=== PATIENT | male | born 1950 | race Caucasian/White ===

== ENCOUNTER 2020-09-14 10:14 | Inpatient (IN) | payer MEDICARE ==
[~2020-09-14] VITALS: Ht 185.4 cm; Wt 72.6 kg
[~2020-09-14 10:14] MED LIST changes: -BENADRYL ALLERG25 MG PO; -LISINOPRIL5 MG PO; -LOPRESSOR 25 MG25 MG PO; -ROPINIROLE HCL2 MG PO; -SYNTHROID50 MCG PO; -UNASYN 3 GM VIAL3 GM INJ
[2020-09-15] MEDS ORDERED: SYNTHROID50 MCG PO (02:18)
[2020-09-15] MEDS ORDERED: ROPINIROLE HCL2 MG PO (07:19)
[2020-09-15] MEDS ORDERED: BENADRYL ALLERG25 MG PO (18:04)
[2020-09-16 12:46] LABS: BUN/CREATININE RATIO 25 (0-10)
[2020-09-18 03:49] LABS: BUN/CREATININE RATIO 27 (0-10)
--- NOTE | 2020-09-18 14:56 | NUR ---
report given to admitting nurse [facility]
[2020-09-18] MEDS ORDERED: UNASYN 3 GM VIAL3 GM INJ (17:02)
[2020-09-18] MEDS ORDERED: LOPRESSOR 25 MG25 MG PO (17:02)
[2020-09-18] MEDS ORDERED: LISINOPRIL5 MG PO (17:02)
--- NOTE | 2020-09-18 18:05 | NUR ---
INFORMED [facility] PATIENT GOING HOME TODAY.
--- NOTE | 2020-09-18 18:13 | NUR ---
PATIENT REFUSED WOUND CARE TODAY
== END 2020-09-18 18:30 | disposition home or self-care (01) | DRG 638 ==
LOC: M/S 14:30
PROVIDERS: ADMIT Internal Medicine Infectious Disease
PROC: 05HM33Z Insertion of Infusion Device into Right Internal Jugular Vein, Percutaneous Approach (ICD-10-PCS; principal; 2020-09-14)
PROC: B543ZZA Ultrasonography of Right Jugular Veins, Guidance (ICD-10-PCS; 2020-09-14)
DX: E11.621 Type 2 diabetes mellitus with foot ulcer (principal); L97.429 Non-pressure chronic ulcer of left heel and midfoot with unspecified severity; L03.116 Cellulitis of left lower limb; M86.172 Other acute osteomyelitis, left ankle and foot; I13.0 Hypertensive heart and chronic kidney disease with heart failure and stage 1 through stage 4 chronic kidney disease, or unspecified chronic kidney disease; I50.22 Chronic systolic (congestive) heart failure; E11.52 Type 2 diabetes mellitus with diabetic peripheral angiopathy with gangrene; I96 Gangrene, not elsewhere classified; Z20.822 Contact with and (suspected) exposure to COVID-19; Z80.9 Family history of malignant neoplasm, unspecified; E11.22 Type 2 diabetes mellitus with diabetic chronic kidney disease; I25.10 Atherosclerotic heart disease of native coronary artery without angina pectoris; B95.61 Methicillin susceptible Staphylococcus aureus infection as the cause of diseases classified elsewhere; B95.2 Enterococcus as the cause of diseases classified elsewhere; N18.30 Chronic kidney disease, stage 3 unspecified; L97.529 Non-pressure chronic ulcer of other part of left foot with unspecified severity; Z95.810 Presence of automatic (implantable) cardiac defibrillator; Z89.421 Acquired absence of other right toe(s); Z79.899 Other long term (current) drug therapy; Z79.01 Long term (current) use of anticoagulants; Z79.82 Long term (current) use of aspirin
CPT/HCPCS: 36415; 71045; 73701; 78315; 80048; 80053; 82962; 83036; 85027; 85652; 86140; 93926; A9503; J0295; J7030; Q9967; U0002

== ENCOUNTER → 2020-09-14 | Outpatient (CLI) | payer MEDICARE ==
[~2020-09-14] MED LIST: ACETAMINOPHEN325 MG PO; ALDACTONE25 MG PO; ASPIRIN81 MG PO; AUGMENTIN 875-1 EACH PO; BENADRYL 50MG C50 MG PO; BENADRYL ALLERG25 MG PO; CRESTOR40 MG PO; EXCEDRIN MIGRA1 EACH PO; FINASTERIDE5 MG PO; FLOMAX 0.4 MG0.4 MG PO; GLUCOPHAGE1000 MG PO; HUMALOG 10100 UNITS/ SC; ISORDIL TAB 2020 MG PO; KEFLEX500 MG PO; LANTUS INS100 UTS/M1 SQ; LASIX40 MG PO; LISINOPRIL20 MG PO; LISINOPRIL5 MG PO; LOPRESSOR 25 MG25 MG PO; LOPRESSOR 50 MG50 MG PO; METOPROLOL TART50 MG PO; NEURONTIN800 MG PO; NORCO 5-325 TA1 EACH PO; PLAVIX 75 MG TA75 MG PO; PRAVASTATIN SOD20 MG PO; PRINIVIL20 MG PO; ROPINIROLE HCL2 MG PO; SYNTHROID50 MCG PO; TYLENOL WITH C1 EACH PO; UNASYN 3 GM VIAL3 GM INJ; VITAMIN C500 M4 PO
[2020-09-14 13:21] LABS: HEMOGLOBIN 11.6 gm/dl (14.0-17.5); RED BLOOD COUNT 3.94 M/UL (4.20-5.50); WHITE BLOOD COUNT 9.8 K/UL (4.5-11.0)
[2020-09-14 14:02] LABS: BUN/CREATININE RATIO 26 (0-10)
== END ==
LOC: OPSV 11:30
PROVIDERS: Nurse Practitioner Family
DX: Z53.8 Procedure and treatment not carried out for other reasons (principal)
CPT/HCPCS: 71045; 80053; 85027; 85652; 86140

== ENCOUNTER 2020-10-17 12:03 | Emergency (ER) | payer MEDICARE, OTHER ==
[~2020-10-17 12:03] MED LIST changes: +BENADRYL ALLERG25 MG PO; +LISINOPRIL5 MG PO; +LOPRESSOR 25 MG25 MG PO; +ROPINIROLE HCL2 MG PO; +SYNTHROID50 MCG PO; +UNASYN 3 GM VIAL3 GM INJ
== END 2020-10-17 12:44 | disposition home or self-care (01) ==
LOC: ER1 12:03
DX: Z45.2 Encounter for adjustment and management of vascular access device (principal); E11.9 Type 2 diabetes mellitus without complications; I10 Essential (primary) hypertension; F17.220 Nicotine dependence, chewing tobacco, uncomplicated
CPT/HCPCS: 99283

== ENCOUNTER → 2020-10-26 | Outpatient (CLI) | payer MEDICARE, OTHER | LOC: KOH-I 14:16 | DX: T81.89XA Other complications of procedures, not elsewhere classified, initial encounter (principal); Z53.9 Procedure and treatment not carried out, unspecified reason ==

== ENCOUNTER → 2020-11-01 | Outpatient (CLI) | payer MEDICARE | LOC: US 10:00 | DX: S81.802A Unspecified open wound, left lower leg, initial encounter (principal); X58.XXXA Exposure to other specified factors, initial encounter | CPT/HCPCS: 93926 ==

== ENCOUNTER → 2020-11-02 | Outpatient (CLI) | payer MEDICARE | LOC: OPSV 11:00 | PROC: 02HV33Z Insertion of Infusion Device into Superior Vena Cava, Percutaneous Approach (ICD-10-PCS; principal; 2020-11-02) | DX: M86.9 Osteomyelitis, unspecified (principal) ==

== ENCOUNTER → 2020-11-03 | Outpatient (CLI) | payer MEDICARE ==
[~2020-11-03] VITALS: Ht 185.4 cm; Wt 72.6 kg
[2020-11-03 08:42] LABS: HEMOGLOBIN 10.9 gm/dl (14.0-17.5); RED BLOOD COUNT 3.63 M/UL (4.20-5.50)
[2020-11-03 08:58] LABS: BUN/CREATININE RATIO 39 (0-10)
== END ==
LOC: OPSV 07:36
PROVIDERS: Podiatrist Foot & Ankle Surgery
DX: M86.9 Osteomyelitis, unspecified (principal)
CPT/HCPCS: 80053; 85027; 85652; 86140; 96365; 96366; J3370; J7070

== ENCOUNTER → 2020-12-06 | Outpatient (CLI) | payer MEDICARE | LOC: WCC 09:31 | PROC: 0JBR0ZZ Excision of Left Foot Subcutaneous Tissue and Fascia, Open Approach (ICD-10-PCS; principal; 2020-12-06) | DX: E11.621 Type 2 diabetes mellitus with foot ulcer (principal); L97.522 Non-pressure chronic ulcer of other part of left foot with fat layer exposed; E11.52 Type 2 diabetes mellitus with diabetic peripheral angiopathy with gangrene; I96 Gangrene, not elsewhere classified; E11.65 Type 2 diabetes mellitus with hyperglycemia; E11.69 Type 2 diabetes mellitus with other specified complication; M86.8X9 Other osteomyelitis, unspecified sites; E11.40 Type 2 diabetes mellitus with diabetic neuropathy, unspecified; I25.2 Old myocardial infarction; I11.0 Hypertensive heart disease with heart failure; I50.9 Heart failure, unspecified; I25.10 Atherosclerotic heart disease of native coronary artery without angina pectoris; Z79.4 Long term (current) use of insulin; Z79.2 Long term (current) use of antibiotics; Z79.899 Other long term (current) drug therapy; Z88.8 Allergy status to other drugs, medicaments and biological substances | CPT/HCPCS: G0463 ==

== ENCOUNTER → 2020-12-13 | Outpatient (CLI) | payer MEDICARE | LOC: WCC 10:21 | DX: E11.621 Type 2 diabetes mellitus with foot ulcer (principal); L97.509 Non-pressure chronic ulcer of other part of unspecified foot with unspecified severity; E11.40 Type 2 diabetes mellitus with diabetic neuropathy, unspecified; E11.65 Type 2 diabetes mellitus with hyperglycemia; I11.0 Hypertensive heart disease with heart failure; I50.9 Heart failure, unspecified; M86.9 Osteomyelitis, unspecified; Z79.4 Long term (current) use of insulin | CPT/HCPCS: 97597 ==

== ENCOUNTER → 2020-12-21 | Outpatient (CLI) | payer MEDICARE | LOC: WCC 10:29 | PROC: 0JBR0ZZ Excision of Left Foot Subcutaneous Tissue and Fascia, Open Approach (ICD-10-PCS; principal; 2020-12-21) | DX: E11.621 Type 2 diabetes mellitus with foot ulcer (principal); L97.522 Non-pressure chronic ulcer of other part of left foot with fat layer exposed; E11.52 Type 2 diabetes mellitus with diabetic peripheral angiopathy with gangrene; I96 Gangrene, not elsewhere classified; E11.40 Type 2 diabetes mellitus with diabetic neuropathy, unspecified; E11.65 Type 2 diabetes mellitus with hyperglycemia; E11.69 Type 2 diabetes mellitus with other specified complication; M86.8X7 Other osteomyelitis, ankle and foot; I11.0 Hypertensive heart disease with heart failure; I50.9 Heart failure, unspecified; I25.10 Atherosclerotic heart disease of native coronary artery without angina pectoris; I25.2 Old myocardial infarction; Z79.4 Long term (current) use of insulin; Z79.2 Long term (current) use of antibiotics; Z79.899 Other long term (current) drug therapy; Z88.8 Allergy status to other drugs, medicaments and biological substances | CPT/HCPCS: 87070; 87205 ==

== ENCOUNTER 2021-06-04 14:08 | Emergency (ER) | payer OTHER, MEDICARE ==
[2021-06-04 14:45] LABS: HEMOGLOBIN 9.4 gm/dl (14.0-17.5); RED BLOOD COUNT 3.14 M/UL (4.20-5.50); WHITE BLOOD COUNT 9.4 K/UL (4.5-11.0)
[2021-06-04] MEDS ORDERED: HYDROCODON-ACE1 EAC4 PO (17:47)
== END 2021-06-04 17:56 | disposition home or self-care (01) ==
LOC: ER1 14:08
PROVIDERS: Student in an Organized Health Care Education/Training Program
DX: S01.112A Laceration without foreign body of left eyelid and periocular area, initial encounter (principal); E11.9 Type 2 diabetes mellitus without complications; I25.2 Old myocardial infarction; I51.9 Heart disease, unspecified; Z23 Encounter for immunization; V03.99XA Pedestrian with other conveyance injured in collision with car, pick-up truck or van, unspecified whether traffic or nontraffic accident, initial encounter; Y92.481 Parking lot as the place of occurrence of the external cause
CPT/HCPCS: 12011; 70450; 71275; 72125; 73560; 80053; 82550; 82553; 83874; 84484; 85025; 90471; 90715; 93005; 99285; Q9967

== ENCOUNTER 2021-06-12 13:45 | Inpatient (IN) | payer MEDICARE, OTHER ==
[~2021-06-12] VITALS: Ht 185.4 cm; Wt 83.5 kg
[~2021-06-12 13:45] MED LIST changes: +HYDROCODON-ACE1 EAC4 PO
[2021-06-12 15:03] LABS: HEMOGLOBIN 8.9 gm/dl (14.0-17.5); RED BLOOD COUNT 3.04 M/UL (4.20-5.50); WHITE BLOOD COUNT 7.8 K/UL (4.5-11.0)
[2021-06-12 15:09] LABS: BUN/CREATININE RATIO 26 (0-10)
[2021-06-12] MEDS ORDERED: ROPINIROLE HCL2 MG PO (17:05)
[2021-06-12] MEDS ORDERED: HYDROCODON-ACE1 EAC4 PO (17:06)
[2021-06-12] MEDS ORDERED: LEVEMIR FL100 UNIT/1 SQ (17:07)
[2021-06-13 04:41] LABS: HEMOGLOBIN 8.8 gm/dl (14.0-17.5); WHITE BLOOD COUNT 9.1 K/UL (4.5-11.0)
[2021-06-13 04:55] LABS: BUN/CREATININE RATIO 24 (0-10)
[2021-06-14 06:40] LABS: HEMOGLOBIN 8.6 gm/dl (14.0-17.5); RED BLOOD COUNT 2.95 M/UL (4.20-5.50)
[2021-06-14 06:45] LABS: WHITE BLOOD COUNT 6.3 K/UL (4.5-11.0)
[2021-06-14 07:07] LABS: BUN/CREATININE RATIO 25 (0-10)
[2021-06-15 03:05] LABS: HEMOGLOBIN 7.4 gm/dl (14.0-17.5); WHITE BLOOD COUNT 6.6 K/UL (4.5-11.0)
[2021-06-15 03:06] LABS: RED BLOOD COUNT 2.51 M/UL (4.20-5.50)
[2021-06-15 03:20] LABS: BUN/CREATININE RATIO 24 (0-10)
[2021-06-16 06:03] LABS: HEMOGLOBIN 7.8 gm/dl (14.0-17.5); RED BLOOD COUNT 2.67 M/UL (4.20-5.50); WHITE BLOOD COUNT 6.2 K/UL (4.5-11.0)
[2021-06-16 06:33] LABS: BUN/CREATININE RATIO 30 (0-10)
[2021-06-17 07:14] LABS: HEMOGLOBIN 8.3 gm/dl (14.0-17.5); RED BLOOD COUNT 2.8 M/UL (4.20-5.50)
[2021-06-17 07:25] LABS: WHITE BLOOD COUNT 8.1 K/UL (4.5-11.0)
[2021-06-17 07:28] LABS: BUN/CREATININE RATIO 32 (0-10)
[2021-06-18 05:08] LABS: HEMOGLOBIN 7.4 gm/dl (14.0-17.5); RED BLOOD COUNT 2.52 M/UL (4.20-5.50); WHITE BLOOD COUNT 6.6 K/UL (4.5-11.0)
[2021-06-18 05:27] LABS: BUN/CREATININE RATIO 36 (0-10)
[2021-06-18] MEDS ORDERED: SANTYL OINT 3030 GM TOP (15:00)
== END 2021-06-19 11:42 | disposition home health service (06) | DRG 300 ==
LOC: ER1 13:45 → CDU 16:11 → M/S 16:11
PROVIDERS: Emergency Medicine; Physician Assistant; Physician Assistant Medical; ADMIT Internal Medicine
DX: E11.52 Type 2 diabetes mellitus with diabetic peripheral angiopathy with gangrene (principal); I50.22 Chronic systolic (congestive) heart failure; E11.621 Type 2 diabetes mellitus with foot ulcer; Z20.822 Contact with and (suspected) exposure to COVID-19; K59.00 Constipation, unspecified; I10 Essential (primary) hypertension; E78.5 Hyperlipidemia, unspecified; L89.152 Pressure ulcer of sacral region, stage 2; G89.29 Other chronic pain; I11.0 Hypertensive heart disease with heart failure; E03.9 Hypothyroidism, unspecified; D63.8 Anemia in other chronic diseases classified elsewhere; I25.5 Ischemic cardiomyopathy; R33.9 Retention of urine, unspecified; E11.65 Type 2 diabetes mellitus with hyperglycemia; Z79.4 Long term (current) use of insulin; Z95.810 Presence of automatic (implantable) cardiac defibrillator; Z95.1 Presence of aortocoronary bypass graft; Z89.431 Acquired absence of right foot; Z88.8 Allergy status to other drugs, medicaments and biological substances; Z80.9 Family history of malignant neoplasm, unspecified
CPT/HCPCS: 36415; 73502; 73552; 73650; 80048; 80202; 82607; 82728; 82746; 82962; 83036; 83540; 83550; 83880; 85025; 85027; 85652; 86140; 87040; 96374; 99284; J0692; J0696; J1650; J3370; J7070; U0002

== ENCOUNTER → 2021-06-24 | Outpatient (CLI) | payer MEDICARE ==
[~2021-06-24] MED LIST changes: +LEVEMIR FL100 UNIT/1 SQ; +SANTYL OINT 3030 GM TOP
[2021-06-24 12:54] LABS: HEMOGLOBIN 8.9 gm/dl (14.0-17.5); RED BLOOD COUNT 3.03 M/UL (4.20-5.50); WHITE BLOOD COUNT 7.9 K/UL (4.5-11.0)
[2021-06-24 13:15] LABS: BUN/CREATININE RATIO 20 (0-10)
== END ==
LOC: LAB 12:25
PROVIDERS: Internal Medicine
DX: D64.9 Anemia, unspecified (principal)
CPT/HCPCS: 80048; 85027

== ENCOUNTER 2021-08-28 16:07 | Emergency (ER) | payer MEDICARE ==
[2021-08-28 17:47] LABS: HEMOGLOBIN 9.7 gm/dl (14.0-17.5); RED BLOOD COUNT 3.39 M/UL (4.20-5.50); WHITE BLOOD COUNT 7.1 K/UL (4.5-11.0)
[2021-08-28 18:07] LABS: BUN/CREATININE RATIO 30 (0-10)
== END 2021-08-28 20:41 | disposition left against medical advice (07) ==
LOC: ER1 16:07
PROVIDERS: Physician Assistant
DX: R60.0 Localized edema (principal); I50.9 Heart failure, unspecified; E11.9 Type 2 diabetes mellitus without complications; E78.5 Hyperlipidemia, unspecified; Z88.8 Allergy status to other drugs, medicaments and biological substances
CPT/HCPCS: 80053; 83880; 85025; 99283

== ENCOUNTER → 2021-09-06 | Outpatient (CLI) | payer MEDICARE | LOC: LBRF 11:05 | DX: E11.628 Type 2 diabetes mellitus with other skin complications (principal); S91.302A Unspecified open wound, left foot, initial encounter | CPT/HCPCS: 87070; 87077; 87205 ==

== ENCOUNTER 2021-12-10 14:49 | Inpatient (IN) | payer MEDICARE ==
[~2021-12-10] VITALS: Ht 177.8 cm; Wt 79.4 kg
[2021-12-10] MEDS ORDERED: SULFAMETHOXAZO1 EAC1 PO (20:22)
[2021-12-10] MEDS ORDERED: LISINOPRIL20 MG PO (20:24)
[2021-12-10 20:27] LABS: HEMOGLOBIN 8.2 gm/dl (14.0-17.5); RED BLOOD COUNT 2.94 M/UL (4.20-5.50); WHITE BLOOD COUNT 22.7 K/UL (4.5-11.0)
[2021-12-10] MEDS ORDERED: CLOPIDOGREL75 MG PO (20:27)
[2021-12-10] MEDS ORDERED: BENADRYL25 MG PO (20:28)
[2021-12-10] MEDS ORDERED: COLACE100 MG PO (20:28)
[2021-12-10] MEDS ORDERED: FERROUS SULFAT325 M2 PO (20:29)
[2021-12-10] MEDS ORDERED: ECOTRIN81 MG PO (20:29)
[2021-12-11 07:32] LABS: HEMOGLOBIN 7.2 gm/dl (14.0-17.5); WHITE BLOOD COUNT 18.1 K/UL (4.5-11.0)
[2021-12-11 07:37] LABS: RED BLOOD COUNT 2.64 M/UL (4.20-5.50)
[2021-12-13 03:30] LABS: RED BLOOD COUNT 2.41 M/UL (4.20-5.50); WHITE BLOOD COUNT 14.8 K/UL (4.5-11.0)
[2021-12-13 04:00] LABS: HEMOGLOBIN 6.8 gm/dl (14.0-17.5)
--- NOTE | 2021-12-14 15:22 | NUR ---
DRESSING CHANGE PER PROVIDERS ORDER'S, RT FOOT MARGIN'S IN TACT, GRAPH NOTED CLEANED WITH IODINE, AND NS COVER WITH NON STICK DRESSING AND WRAPPED WITH KERLIX. LT FOOT WOUND BED INTACT WITH VISIBLE BLOOD NOTED BLEEDING STOPPED ONCE RINSED WITH NORMAL SALINE. COVERED WITH NON ADHERENT GAUGE AND WRAPPED WITH KERLIX. PT TOLERATED WELL.
[2021-12-16 03:51] LABS: HEMOGLOBIN 7.7 gm/dl (14.0-17.5); RED BLOOD COUNT 2.69 M/UL (4.20-5.50)
--- NOTE | 2021-12-16 14:58 | NUR ---
PT DRESSING CHANGE COMPLETED PER PROVIDERS ORDERS RT HEEL HAS WELL APPROXIMATED EDGES, NO DRAINAGE NOTED. LT HEEL HAS GRAPH IN PLACE WITH SLOUGHY WOUND BED WHITE TO YELLOWISH IN COLOR, ODOR NOTED COMING FROM WOUND.
[2021-12-17 06:30] LABS: HEMOGLOBIN 7.9 gm/dl (14.0-17.5); RED BLOOD COUNT 2.74 M/UL (4.20-5.50); WHITE BLOOD COUNT 11.7 K/UL (4.5-11.0)
--- NOTE | 2021-12-17 18:27 | NUR ---
dsg changes as ordered to bilateral heels, pt tolerated well..
--- NOTE | 2021-12-17 19:00 | NUR ---
RN TURNED PT'S BED ALARM ON. HOWEVER, PT DEMANDED THAT RN TURN BED ALARM OFF. PT STATING THAT HE DOES NOT WANT ALARM ON AND THAT HE WILL NOT ATTEMPT TO GET OUT OF BED WITHOUT ASSISTANCE. PT REFUSING YELLOW GOWN AND YELLOW NONSKID SOCKS AT THIS TIME. EDUCATED PT ON THE IMPORTANCE OF BED ALARM USAGE. HOWEVER, PT IS STILL REFUSING BED ALARM. PT IS A&O X 3.
[2021-12-18 06:35] LABS: WHITE BLOOD COUNT 11.2 K/UL (4.5-11.0)
[2021-12-18 06:36] LABS: RED BLOOD COUNT 2.42 M/UL (4.20-5.50)
--- NOTE | 2021-12-18 08:30 | NUR ---
Mr Grimes asked for assistance to bedside commode to urinate. I asked if he could try the urinal with assistance due to his hgb being 7.0 and concern that with max assist and low blood he could be at risk for being dizzy and a higher risk for falls. he laid back in the bed with frustration and said "Nevermind I guess I will just piss on myself and you guys can change me." he has continued to be noncompliant with safety concerns and declining the bed alarm, yellow socks and gown. The [employer] Radha and i both told him that was not necessary we were there to help him. He did get up and he voided in the bedside commode, His wet pants were removed by the tech accidentally removing his right heel dressing. When he was cleaned up and helped back to bed, before leaving the room I told him I would be right back when I finished passing his neighbors meds that I had already started. My counseling case manager approached me asking if there had been any issues I told her not that I was aware and i gave her a brief explanantion about a few things that had been happening. The patient requested that I not be his nurse. Report given to Olive YUSUF . Dressing changes to bilateral feet done pt tolerated well. aware of all issues this morning. Care will be resumed by Olive YUSUF. I never told this patient that personal care of any kind was below my pay grade.
[2021-12-18 09:52] LABS: HEMOGLOBIN 7.8 gm/dl (14.0-17.5)
[2021-12-19 04:00] LABS: HEMOGLOBIN 7.7 gm/dl (14.0-17.5); WHITE BLOOD COUNT 11.6 K/UL (4.5-11.0)
[2021-12-19 04:08] LABS: RED BLOOD COUNT 2.68 M/UL (4.20-5.50)
--- NOTE | 2021-12-19 15:09 | NUR ---
AFTER PLACEMENT OF COUDE CATHETER PATIENT WANTED STAT LOCK TO BE PLACED ABOVE HIS WAIST BAND. PATIENT WAS EDUCATED TO WHY THIS IS AN IMPOSSIBLE PLACEMENT DUE TO INFECTION AND POSSIBLE BLADDER RUPTURE OUTCOMES OF SUCH A PLACEMNT. PATIENT ALSO WAS EDUCATED TO WHY BETTER FITTING PAJAMA PANTS WOULD BE HELPFUL AND SOME OF THE HOSPITAL PAJAMAS WOULD BE OBTAINED FOR HIM. HE WAS AMENABLE TO THIS SOLUTION AFTER EDUCATION. WILL CONTINUE TO MONITOR.
[2021-12-20 04:10] LABS: RED BLOOD COUNT 2.44 M/UL (4.20-5.50); WHITE BLOOD COUNT 9.5 K/UL (4.5-11.0)
[2021-12-20 10:18] LABS: HEMOGLOBIN 8.3 gm/dl (14.0-17.5)
[2021-12-21 02:51] LABS: HEMOGLOBIN 7.5 gm/dl (14.0-17.5); RED BLOOD COUNT 2.59 M/UL (4.20-5.50); WHITE BLOOD COUNT 8.8 K/UL (4.5-11.0)
[2021-12-22 06:15] LABS: HEMOGLOBIN 7.9 gm/dl (14.0-17.5); RED BLOOD COUNT 2.73 M/UL (4.20-5.50); WHITE BLOOD COUNT 8.6 K/UL (4.5-11.0)
[2021-12-23 06:14] LABS: HEMOGLOBIN 7.5 gm/dl (14.0-17.5); RED BLOOD COUNT 2.63 M/UL (4.20-5.50); WHITE BLOOD COUNT 8.5 K/UL (4.5-11.0)
[2021-12-24 06:04] LABS: HEMOGLOBIN 7.7 gm/dl (14.0-17.5); RED BLOOD COUNT 2.74 M/UL (4.20-5.50)
[2021-12-24 06:28] LABS: BUN/CREATININE RATIO 61 (0-10)
[2021-12-25 02:21] LABS: HEMOGLOBIN 8.6 gm/dl (14.0-17.5); RED BLOOD COUNT 2.98 M/UL (4.20-5.50); WHITE BLOOD COUNT 8.8 K/UL (4.5-11.0)
[2021-12-25 02:40] LABS: BUN/CREATININE RATIO 64 (0-10)
[2021-12-26 05:11] LABS: HEMOGLOBIN 8.4 gm/dl (14.0-17.5); RED BLOOD COUNT 2.92 M/UL (4.20-5.50); WHITE BLOOD COUNT 8.1 K/UL (4.5-11.0)
[2021-12-26 05:18] LABS: BUN/CREATININE RATIO 64 (0-10)
[2021-12-26] MEDS ORDERED: FLOMAX 0.4 MG0.4 MG PO (14:48)
[2021-12-26] MEDS ORDERED: IPRAT-ALBUT 0.5-3 ML NEB (14:48)
[2021-12-26] MEDS ORDERED: GABAPENTIN400 MG PO (14:48)
[2021-12-26] MEDS ORDERED: THERAGRAN M TAB1 EA PO (14:48)
[2021-12-26] MEDS ORDERED: VITAMIN D310 MC4 PO (14:48)
[2021-12-26] MEDS ORDERED: PROTONIX 40 MG40 M1 PO (14:48)
[2021-12-26] MEDS ORDERED: HYDROCODON-ACE1 EAC4 PO (14:59)
[2021-12-26] MEDS ORDERED: ENOXAPARIN40 MG/0.4 SC (14:59)
[2021-12-26] MEDS ORDERED: HYSEPT473 ML IR (15:02)
[2021-12-27 06:43] LABS: HEMOGLOBIN 8.9 gm/dl (14.0-17.5); RED BLOOD COUNT 3.09 M/UL (4.20-5.50); WHITE BLOOD COUNT 7.6 K/UL (4.5-11.0)
[2021-12-27 07:09] LABS: BUN/CREATININE RATIO 62 (0-10)
[2021-12-28 09:18] LABS: HBSAG SCREEN Negative (Negative); HEP B CORE AB, TOT Negative (Negative)
[2021-12-28 09:49] LABS: HEP C VIRUS AB <0.1 s/co ratio
== END 2021-12-27 19:00 | disposition home or self-care (01) | DRG 264 ==
LOC: MED SURG 4 16:42
PROVIDERS: Internal Medicine; Internal Medicine Gastroenterology; Internal Medicine Infectious Disease; Podiatrist Foot & Ankle Surgery; ADMIT Internal Medicine
PROC: 0QBL0ZZ Excision of Right Tarsal, Open Approach (ICD-10-PCS; 2021-12-12)
PROC: 0HRMXK3 Replacement of Right Foot Skin with Nonautologous Tissue Substitute, Full Thickness, External Approach (ICD-10-PCS; 2021-12-12)
PROC: 0JBQ0ZZ Excision of Right Foot Subcutaneous Tissue and Fascia, Open Approach (ICD-10-PCS; principal; 2021-12-12 11:45)
PROC: 02HV33Z Insertion of Infusion Device into Superior Vena Cava, Percutaneous Approach (ICD-10-PCS; 2021-12-13)
PROC: B548ZZA Ultrasonography of Superior Vena Cava, Guidance (ICD-10-PCS; 2021-12-13)
PROC: 30233N1 Transfusion of Nonautologous Red Blood Cells into Peripheral Vein, Percutaneous Approach (ICD-10-PCS; 2021-12-15)
DX: E11.52 Type 2 diabetes mellitus with diabetic peripheral angiopathy with gangrene (principal); M86.8X7 Other osteomyelitis, ankle and foot; L97.419 Non-pressure chronic ulcer of right heel and midfoot with unspecified severity; Z20.822 Contact with and (suspected) exposure to COVID-19; Z66 Do not resuscitate; I50.22 Chronic systolic (congestive) heart failure; N17.9 Acute kidney failure, unspecified; I13.0 Hypertensive heart and chronic kidney disease with heart failure and stage 1 through stage 4 chronic kidney disease, or unspecified chronic kidney disease; E87.1 Hypo-osmolality and hyponatremia; R44.3 Hallucinations, unspecified; E11.621 Type 2 diabetes mellitus with foot ulcer; N18.30 Chronic kidney disease, stage 3 unspecified; M54.9 Dorsalgia, unspecified; G89.29 Other chronic pain; D63.1 Anemia in chronic kidney disease; M79.605 Pain in left leg; M79.604 Pain in right leg; I25.5 Ischemic cardiomyopathy; E03.9 Hypothyroidism, unspecified; D50.9 Iron deficiency anemia, unspecified; R79.89 Other specified abnormal findings of blood chemistry; N40.1 Benign prostatic hyperplasia with lower urinary tract symptoms; R33.8 Other retention of urine; I25.10 Atherosclerotic heart disease of native coronary artery without angina pectoris; E11.69 Type 2 diabetes mellitus with other specified complication; Z79.4 Long term (current) use of insulin; Z89.421 Acquired absence of other right toe(s); Z95.1 Presence of aortocoronary bypass graft; Z95.810 Presence of automatic (implantable) cardiac defibrillator; Z91.14 Patient's other noncompliance with medication regimen; Z88.8 Allergy status to other drugs, medicaments and biological substances; Z83.3 Family history of diabetes mellitus; Z80.9 Family history of malignant neoplasm, unspecified
CPT/HCPCS: 36415; 36430; 71045; 78315; 80048; 80053; 80202; 81001; 82270; 82728; 82962; 83036; 83540; 83550; 83605; 83735; 83880; 84439; 84443; 85014; 85018; 85025; 85027; 85652; 86140; 86704; 86706; 86708; 86803; 86850; 86900; 86901; 86920; 87040; 87070; 87077; 87186; 87205; 87340; 93005; 93925; 93970; 94760; 97110; 97110-GP-CQ; 97116; 97116-GP-CQ; 97162; 97165; 97530; 97530-GP-CQ; 97535; A9503; C1751; C9113; J0290; J0295; J1335; J1650; J1756; J2185; J2543; J2704; J2795; J3370; J7030; J7040; J7070; J7120; P9016; P9047; Q4133; U0002

== ENCOUNTER 2021-12-28 10:47 | Inpatient (IN) | payer MEDICARE ==
[~2021-12-28] VITALS: Ht 185.4 cm; Wt 81.6 kg
[~2021-12-28 10:47] MED LIST changes: +BENADRYL25 MG PO; +CLOPIDOGREL75 MG PO; +COLACE100 MG PO; +ECOTRIN81 MG PO; +ENOXAPARIN40 MG/0.4 SC; +FERROUS SULFAT325 M2 PO; +GABAPENTIN400 MG PO; +HYSEPT473 ML IR; +IPRAT-ALBUT 0.5-3 ML NEB; +PROTONIX 40 MG40 M1 PO; +SULFAMETHOXAZO1 EAC1 PO; +THERAGRAN M TAB1 EA PO; +VITAMIN D310 MC4 PO
[2021-12-28 11:53] LABS: HEMOGLOBIN 8.8 gm/dl (14.0-17.5); RED BLOOD COUNT 3.02 M/UL (4.20-5.50)
[2021-12-28 11:55] LABS: WHITE BLOOD COUNT 10.8 K/UL (4.5-11.0)
[2021-12-28 12:20] LABS: BUN/CREATININE RATIO 69 (0-10)
[2021-12-29 06:20] LABS: HEMOGLOBIN 8.1 gm/dl (14.0-17.5); RED BLOOD COUNT 2.84 M/UL (4.20-5.50)
[2021-12-29 06:29] LABS: WHITE BLOOD COUNT 7.4 K/UL (4.5-11.0)
[2021-12-29 06:46] LABS: BUN/CREATININE RATIO 57 (0-10)
[2021-12-29] MEDS ORDERED: HUMULIN R500 UNIT/1 SQ (14:09)
[2021-12-29] MEDS ORDERED: LEVOTHYROXINE50 MCG PO (14:11)
[2021-12-29] MEDS ORDERED: METOPROLOL TART50 MG PO (14:12)
[2021-12-29] MEDS ORDERED: GABAPENTIN800 MG PO (14:37)
--- NOTE | 2021-12-30 02:01 | NUR ---
DRESSING CHANGE TO BOTH FEET PER DR PICKETT ORDER. PATIENT TOLERATED WELL, BOTH EXTREMETIES SHOWING IMPORVEMENT.
[2021-12-31 04:20] LABS: HEMOGLOBIN 7.9 gm/dl (14.0-17.5); RED BLOOD COUNT 2.79 M/UL (4.20-5.50); WHITE BLOOD COUNT 6.4 K/UL (4.5-11.0)
--- NOTE | 2021-12-31 04:22 | NUR ---
AT THE BEGINING OF SHIFT THE PATIENT STATED TO ME THAT "THE DR CAME IN AND TOLD ME MY KIDNEYS ARE BAD AND I MAY NEED DIALYSIS". THIS WAS ALL NEW TO ME SO I WENT TO REVIEW THE PHYSICAL CHART SINCE I DID NOT RECIEVE ANY INFO DURING REPORT OR SEE ORDERS ON [employer]. I REVIEWED THE PATIENTS LABS AND HIS KIDNEY FUNCTIONS WERE WNL. AFTER REVIEWING THE CHART AND STILL FINDING NOTHING REGARDING NEPHROLOGY I THEN CALLED THE 4TH FLOOR TO SPEAK TO THE NURSE FOR 4108, THINKING MAYBE THERE WAS A MIX UP. NO PATIENT WAS IN [address] VELAZCO AND INFORMED HER OF THIS SITUATION. SHE HAD ME GET HER THE NUMBER FOR DR BEYER AND SHE THEN CONTACTED DR BEYER FROM NEPHROLOGY. DR BEYER INFORMED DR VELAZCO THAT HE ACCIDENTLY MIXED UP [address] HEWITT THEN SPOKE TO MY PATIENT IN ROOM 5108 TO CLEAR UP THE MISUNDERSTANDING. THE PATIENT IN 5108 IS STILL A BIT EMOTIONAL OVER THE SITUATION BUT IS VERY THANKFUL FOR DR VELAZCO FOR TAKING THE TIME TO CLEAR UP THE MISUNDERSTANDING .
[2021-12-31 04:59] LABS: BUN/CREATININE RATIO 39 (0-10)
--- NOTE | 2021-12-31 05:19 | NUR ---
VANC TROUGH WAS 23.1 CONTACTED PHARMACY. REHAN SAID TO HOLD FOR NOW THEY WILL CHECK DOSE
[2022-01-01 06:43] LABS: HEMOGLOBIN 7.8 gm/dl (14.0-17.5); RED BLOOD COUNT 2.76 M/UL (4.20-5.50); WHITE BLOOD COUNT 6.5 K/UL (4.5-11.0)
[2022-01-01 07:03] LABS: BUN/CREATININE RATIO 38 (0-10)
[2022-01-02 05:36] LABS: HEMOGLOBIN 7.9 gm/dl (14.0-17.5); RED BLOOD COUNT 2.73 M/UL (4.20-5.50); WHITE BLOOD COUNT 5.6 K/UL (4.5-11.0)
[2022-01-02 06:08] LABS: BUN/CREATININE RATIO 37 (0-10)
[2022-01-02 08:18] LABS: HAPTOGLOBIN 253 mg/dL (32-363)
[2022-01-02] MEDS ORDERED: INVANZ (10:31)
[2022-01-02] MEDS ORDERED: VANCO (10:31)
[2022-01-02 15:15] LABS: HEMATOCRIT 25.8 % (37.5-51.0)
[2022-01-03 04:08] LABS: HEMOGLOBIN 8.2 gm/dl (14.0-17.5); RED BLOOD COUNT 2.78 M/UL (4.20-5.50)
[2022-01-03 04:13] LABS: BUN/CREATININE RATIO 36 (0-10); WHITE BLOOD COUNT 7.7 K/UL (4.5-11.0)
[2022-01-03] MEDS ORDERED: HUMALOG 10100 UNITS/ SC (12:01)
[2022-01-03] MEDS ORDERED: FUROSEMIDE10 MG/1 M1 IVP (12:01)
[2022-01-03] MEDS ORDERED: SANTYL OINT 3030 GM TOP (12:01)
[2022-01-04 05:22] LABS: HEMOGLOBIN 7.7 gm/dl (14.0-17.5); RED BLOOD COUNT 2.65 M/UL (4.20-5.50); WHITE BLOOD COUNT 5.9 K/UL (4.5-11.0)
[2022-01-04 06:43] LABS: BUN/CREATININE RATIO 32 (0-10)
[2022-01-05 07:11] LABS: HEMOGLOBIN 8.9 gm/dl (14.0-17.5); WHITE BLOOD COUNT 5.9 K/UL (4.5-11.0)
[2022-01-05 07:35] LABS: RED BLOOD COUNT 3.1 M/UL (4.20-5.50)
[2022-01-05 07:43] LABS: BUN/CREATININE RATIO 33 (0-10)
[2022-01-06 04:38] LABS: HEMOGLOBIN 7.9 gm/dl (14.0-17.5)
[2022-01-06 04:43] LABS: BUN/CREATININE RATIO 31 (0-10)
[2022-01-06 04:50] LABS: RED BLOOD COUNT 2.77 M/UL (4.20-5.50)
[2022-01-07 05:48] LABS: HEMOGLOBIN 8.1 gm/dl (14.0-17.5); RED BLOOD COUNT 2.79 M/UL (4.20-5.50)
[2022-01-07 06:02] LABS: BUN/CREATININE RATIO 32 (0-10)
[2022-01-07] MEDS ORDERED: GABAPENTIN400 MG PO ×2 (10:43→10:45)
[2022-01-07] MEDS ORDERED: HYDROCODON-ACE1 EAC4 PO (10:46)
== END 2022-01-07 15:27 | DRG 299 ==
LOC: ER1 10:47 → CDU 15:11 → M/S 15:11
PROVIDERS: Internal Medicine; Physician Assistant; Registered Nurse; ADMIT Internal Medicine
PROC: B24BZZZ Ultrasonography of Heart with Aorta (ICD-10-PCS; principal; 2022-01-01)
DX: E11.52 Type 2 diabetes mellitus with diabetic peripheral angiopathy with gangrene (principal); L89.623 Pressure ulcer of left heel, stage 3; L89.613 Pressure ulcer of right heel, stage 3; J18.9 Pneumonia, unspecified organism; I50.33 Acute on chronic diastolic (congestive) heart failure; M86.171 Other acute osteomyelitis, right ankle and foot; M86.68 Other chronic osteomyelitis, other site; I96 Gangrene, not elsewhere classified; E11.69 Type 2 diabetes mellitus with other specified complication; N40.0 Benign prostatic hyperplasia without lower urinary tract symptoms; Z20.822 Contact with and (suspected) exposure to COVID-19; R33.8 Other retention of urine; I11.0 Hypertensive heart disease with heart failure; E78.5 Hyperlipidemia, unspecified; E03.9 Hypothyroidism, unspecified; E11.40 Type 2 diabetes mellitus with diabetic neuropathy, unspecified; E11.621 Type 2 diabetes mellitus with foot ulcer; E66.9 Obesity, unspecified; M54.9 Dorsalgia, unspecified; G89.29 Other chronic pain; I73.9 Peripheral vascular disease, unspecified; D50.9 Iron deficiency anemia, unspecified; I25.5 Ischemic cardiomyopathy; D63.8 Anemia in other chronic diseases classified elsewhere; I25.10 Atherosclerotic heart disease of native coronary artery without angina pectoris; I70.1 Atherosclerosis of renal artery; Z89.421 Acquired absence of other right toe(s); Z88.8 Allergy status to other drugs, medicaments and biological substances; Z91.14 Patient's other noncompliance with medication regimen; Z95.5 Presence of coronary angioplasty implant and graft; Z79.82 Long term (current) use of aspirin; Z79.899 Other long term (current) drug therapy; Z83.3 Family history of diabetes mellitus; Z90.89 Acquired absence of other organs; Z98.890 Other specified postprocedural states; Z95.810 Presence of automatic (implantable) cardiac defibrillator
CPT/HCPCS: ECHO; 0240U; 36415; 71045; 80048; 80053; 80202; 81001; 82272; 82550; 82553; 82607; 82728; 82747; 82962; 83010; 83540; 83550; 83605; 83615; 83690; 83735; 83880; 83921; 84100; 84484; 85025; 85027; 85045; 85610; 86140; 87040; 93005; 93306; 93970; 94640; 94664; 94760; 96372; 96374; 96375; 96376; 97110; 97110-GP-CQ; 97116; 97116-GP-CQ; 97161; 97530-GP-CQ; 99285; A6212; G0378; J1335; J1650; J1756; J1940; J3370; J7070; U0002

== ENCOUNTER 2022-01-15 15:01 | Inpatient (IN) | payer MEDICARE ==
[~2022-01-15] VITALS: Ht 177.8 cm; Wt 88.9 kg
[~2022-01-15 15:01] MED LIST changes: +FUROSEMIDE10 MG/1 M1 IVP; +GABAPENTIN800 MG PO; +HUMULIN R500 UNIT/1 SQ; +INVANZ; +LEVOTHYROXINE50 MCG PO; +ROPINIROLE HCL1 MG PO; +VANCO
[2022-01-15] MEDS ORDERED: NEURONTIN400 MG PO (17:14)
[2022-01-15] MEDS ORDERED: HYDROCODON-ACE1 EAC4 PO (17:15)
[2022-01-15] MEDS ORDERED: IPRAT-ALBUT 0.5-3 ML INH (17:15)
[2022-01-15] MEDS ORDERED: ENOXAPARIN40 MG/0.4 SQ (17:16)
[2022-01-15] MEDS ORDERED: PROTONIX 40 MG40 M1 PO (17:16)
[2022-01-15] MEDS ORDERED: HUMALOG100 UNIT/1 SQ (17:17)
[2022-01-15] MEDS ORDERED: SANTYL OINT 3030 GM TOP (17:35)
[2022-01-15] MEDS ORDERED: VITAMIN D310 MC4 PO (17:41)
[2022-01-15] MEDS ORDERED: MULTIVITAMIN1 EACH PO (17:42)
[2022-01-15 18:45] LABS: HEMOGLOBIN 9.2 gm/dl (14.0-17.5); RED BLOOD COUNT 3.26 M/UL (4.20-5.50); WHITE BLOOD COUNT 8.2 K/UL (4.5-11.0)
[2022-01-15 20:01] LABS: BUN/CREATININE RATIO 31 (0-10)
== END 2022-01-16 19:07 | disposition short-term general hospital (02) | DRG 300 ==
LOC: MED SURG 4 16:29
PROVIDERS: ADMIT Internal Medicine Infectious Disease
DX: E11.52 Type 2 diabetes mellitus with diabetic peripheral angiopathy with gangrene (principal); M86.8X7 Other osteomyelitis, ankle and foot; I50.22 Chronic systolic (congestive) heart failure; Z20.822 Contact with and (suspected) exposure to COVID-19; E11.69 Type 2 diabetes mellitus with other specified complication; I25.10 Atherosclerotic heart disease of native coronary artery without angina pectoris; N40.1 Benign prostatic hyperplasia with lower urinary tract symptoms; I11.0 Hypertensive heart disease with heart failure; D50.9 Iron deficiency anemia, unspecified; G89.29 Other chronic pain; E89.0 Postprocedural hypothyroidism; M54.9 Dorsalgia, unspecified; I25.5 Ischemic cardiomyopathy; Z79.4 Long term (current) use of insulin; Z95.810 Presence of automatic (implantable) cardiac defibrillator; Z95.1 Presence of aortocoronary bypass graft; Z89.421 Acquired absence of other right toe(s); Z80.9 Family history of malignant neoplasm, unspecified; Z79.01 Long term (current) use of anticoagulants; Z79.82 Long term (current) use of aspirin
CPT/HCPCS: 80053; 82962; 83735; 85025; 85610; 85730; 94760; J1335

== ENCOUNTER 2022-02-10 22:40 | Emergency (ER) | payer MEDICARE ==
[~2022-02-10 22:40] MED LIST changes: +ENOXAPARIN40 MG/0.4 SQ; +HUMALOG100 UNIT/1 SQ; +IPRAT-ALBUT 0.5-3 ML INH; +MULTIVITAMIN1 EACH PO; +NEURONTIN400 MG PO
[2022-02-10 23:48] LABS: RED BLOOD COUNT 2.35 M/UL (4.20-5.50); WHITE BLOOD COUNT 6.7 K/UL (4.5-11.0)
[2022-02-10 23:50] LABS: HEMOGLOBIN 6.7 gm/dl (14.0-17.5)
[2022-02-11 00:09] LABS: BUN/CREATININE RATIO 53 (0-10)
== END 2022-02-11 10:18 | disposition home or self-care (01) ==
LOC: ER1 22:40
PROVIDERS: Student in an Organized Health Care Education/Training Program
DX: D50.9 Iron deficiency anemia, unspecified (principal); I11.0 Hypertensive heart disease with heart failure; I50.9 Heart failure, unspecified; E11.9 Type 2 diabetes mellitus without complications
CPT/HCPCS: 36430; 80053; 82272; 82550; 82553; 83605; 84484; 85025; 86850; 86900; 86901; 86920; 87040; 93005; 99285; J7030; P9016

== ENCOUNTER 2022-03-03 11:05 | Inpatient (IN) | payer MEDICARE ==
[~2022-03-03] VITALS: Ht 185.4 cm; Wt 75.3 kg
[~2022-03-03 11:05] MED LIST changes: -NEURONTIN400 MG PO; -ROPINIROLE HCL1 MG PO
[2022-03-03 11:39] LABS: RED BLOOD COUNT 3.83 M/UL (4.20-5.50); WHITE BLOOD COUNT 14.6 K/UL (4.5-11.0)
[2022-03-03] MEDS ORDERED: CLOPIDOGREL75 MG PO (13:38)
[2022-03-03] MEDS ORDERED: NYSTATIN60 GM TOP (13:39)
[2022-03-03] MEDS ORDERED: LISINOPRIL20 MG PO (13:40)
[2022-03-04 02:23] LABS: HEMOGLOBIN 10.1 gm/dl (14.0-17.5); RED BLOOD COUNT 3.54 M/UL (4.20-5.50); WHITE BLOOD COUNT 13.7 K/UL (4.5-11.0)
[2022-03-04 03:05] LABS: BUN/CREATININE RATIO 35 (0-10)
[2022-03-05 04:23] LABS: HEMOGLOBIN 9.4 gm/dl (14.0-17.5); RED BLOOD COUNT 3.25 M/UL (4.20-5.50)
[2022-03-05 04:24] LABS: WHITE BLOOD COUNT 8.8 K/UL (4.5-11.0)
[2022-03-05 05:41] LABS: BUN/CREATININE RATIO 37 (0-10)
[2022-03-06 02:06] LABS: HEMOGLOBIN 8.8 gm/dl (14.0-17.5); RED BLOOD COUNT 3.07 M/UL (4.20-5.50); WHITE BLOOD COUNT 10.6 K/UL (4.5-11.0)
[2022-03-06 02:30] LABS: BUN/CREATININE RATIO 34 (0-10)
[2022-03-07 03:11] LABS: BUN/CREATININE RATIO 32 (0-10)
[2022-03-07 03:20] LABS: HEMOGLOBIN 8.4 gm/dl (14.0-17.5); RED BLOOD COUNT 2.89 M/UL (4.20-5.50); WHITE BLOOD COUNT 11.4 K/UL (4.5-11.0)
[2022-03-08 02:22] LABS: HEMOGLOBIN 8.6 gm/dl (14.0-17.5); WHITE BLOOD COUNT 13.3 K/UL (4.5-11.0)
[2022-03-08 02:48] LABS: BUN/CREATININE RATIO 38 (0-10)
[2022-03-09 01:55] LABS: HEMOGLOBIN 8.5 gm/dl (14.0-17.5); RED BLOOD COUNT 2.95 M/UL (4.20-5.50)
[2022-03-09 01:59] LABS: WHITE BLOOD COUNT 9.4 K/UL (4.5-11.0)
[2022-03-09 02:26] LABS: BUN/CREATININE RATIO 43 (0-10)
[2022-03-10 01:24] LABS: HEMOGLOBIN 8.3 gm/dl (14.0-17.5); RED BLOOD COUNT 2.71 M/UL (4.20-5.50); WHITE BLOOD COUNT 8.3 K/UL (4.5-11.0)
[2022-03-10 01:36] LABS: BUN/CREATININE RATIO 43 (0-10)
[2022-03-10] MEDS ORDERED: FLORANEX GRANU1 EACH PO (10:12)
[2022-03-10] MEDS ORDERED: DOCUSATE SODIU100 MG PO (10:12)
[2022-03-10] MEDS ORDERED: POLYETHYLENE GL17 GM PO (10:12)
[2022-03-10] MEDS ORDERED: LEVOFLOXACIN500 MG PO (10:43)
[2022-03-10] MEDS ORDERED: PERCOCET 5/325 T1 EA PO (13:34)
== END 2022-03-10 14:42 | disposition home or self-care (01) | DRG 698 ==
LOC: ER1 11:05 → PROG CARE 13:10 → CDU 13:10 → PROG CARE 15:55
PROVIDERS: Family Medicine; Internal Medicine; Physician Assistant Medical; ADMIT Internal Medicine
PROC: 3E03329 Introduction of Other Anti-infective into Peripheral Vein, Percutaneous Approach (ICD-10-PCS; principal; 2022-03-03)
PROC: 3E033XZ Introduction of Vasopressor into Peripheral Vein, Percutaneous Approach (ICD-10-PCS; 2022-03-03)
DX: T83.518A Infection and inflammatory reaction due to other urinary catheter, initial encounter (principal); A41.52 Sepsis due to Pseudomonas; L89.323 Pressure ulcer of left buttock, stage 3; R65.21 Severe sepsis with septic shock; L97.429 Non-pressure chronic ulcer of left heel and midfoot with unspecified severity; I50.22 Chronic systolic (congestive) heart failure; N30.00 Acute cystitis without hematuria; N17.9 Acute kidney failure, unspecified; E11.621 Type 2 diabetes mellitus with foot ulcer; I73.9 Peripheral vascular disease, unspecified; E11.69 Type 2 diabetes mellitus with other specified complication; Z20.822 Contact with and (suspected) exposure to COVID-19; Y84.6 Urinary catheterization as the cause of abnormal reaction of the patient, or of later complication, without mention of misadventure at the time of the procedure; N40.0 Benign prostatic hyperplasia without lower urinary tract symptoms; E78.5 Hyperlipidemia, unspecified; E03.9 Hypothyroidism, unspecified; I25.5 Ischemic cardiomyopathy; I25.10 Atherosclerotic heart disease of native coronary artery without angina pectoris; I08.1 Rheumatic disorders of both mitral and tricuspid valves; I44.7 Left bundle-branch block, unspecified; K59.00 Constipation, unspecified; E86.0 Dehydration; I11.0 Hypertensive heart disease with heart failure; E11.51 Type 2 diabetes mellitus with diabetic peripheral angiopathy without gangrene; L89.152 Pressure ulcer of sacral region, stage 2; R53.81 Other malaise; L89.622 Pressure ulcer of left heel, stage 2; Z95.1 Presence of aortocoronary bypass graft; Z74.01 Bed confinement status; Z79.4 Long term (current) use of insulin; Z79.82 Long term (current) use of aspirin; Z89.511 Acquired absence of right leg below knee; Z90.89 Acquired absence of other organs; Z79.899 Other long term (current) drug therapy; Z83.3 Family history of diabetes mellitus
CPT/HCPCS: 36415; 71045; 72192; 80053; 80202; 81001; 82962; 83605; 83690; 83735; 85025; 85027; 85652; 86140; 86850; 86900; 86901; 87040; 87070; 87077; 87086; 87186; 87205; 93005; 96361; 96374; 96375; 97110-GP-CQ; 97162; 97167; 97530; 97530-GP-CQ; 99285; A6212; C9113; J0696; J1335; J1650; J2185; J3370; J3475; J7070